=== PATIENT | female | born 2000 | race Caucasian/White ===

== ENCOUNTER 2019-01-01 21:22 | Emergency (ER) | payer OTHER ==
[~2019-01-01] VITALS: Ht 160 cm; Wt 81.6 kg
[2019-01-01 21:31] VITALS: BP 122/92
--- NOTE | 2019-01-01 21:33 | NUR ---
PT TAKEN TO BED 6
--- NOTE | 2019-01-01 21:40 | NUR ---
Dr. Kumar evaluating patient at bedside.
--- NOTE | 2019-01-01 21:45 | NUR ---
18/F BIB MOTHER, C/O DIZZINESS THAT STARTED 10 HRS AGO. S/P BL WISDOM TOOTH EXTRACTION YESTERDAY. REPORTS FEVER. TEMP 100.4 AT THIS TIME, COOLING MEASURES INITIATED. REPORTS NONPRODUCTIVE COUGH AND CONGESTION. DENIES CP, SOB, N/V. AOX4, GCS 15, RR EVEN AND UNLABORED. LUNG SOUNDS CLEAR BL. DENIES MED HX RX AMOXICILLIN, NAPROXEN, TYLENOL
[2019-01-01] MEDS ORDERED: KETOROLAC 30 MG/ML VIAL IM ONE (21:55)
[2019-01-01 23:03] VITALS: BP 111/74
--- NOTE | 2019-01-01 23:03 | NUR ---
Patient discharged with v/s stable. Written and verbal after care instructions given and explained. Patient alert, oriented and verbalized understanding of instructions. Ambulatory with steady gait. All questions addressed prior to discharge. ID band removed. Patient advised to follow up with PMD. Rx of NAPROSYN, TAMIFLU given. Patient educated on indication of medication including possible reaction and side effects. Opportunity to ask questions provided and answered.
== END 2019-01-01 23:03 | disposition home or self-care (01) ==
LOC: MED 21:22
DX: J10.1 Influenza due to other identified influenza virus with other respiratory manifestations (principal)
CPT/HCPCS: 87804; 96372; 99283; J1885; 36415

== ENCOUNTER 2020-02-29 17:22 | Emergency (ER) | payer OTHER ==
[~2020-02-29] VITALS: Ht 165.1 cm; Wt 87.5 kg
[2020-02-29 17:29] VITALS: BP 124/77
--- NOTE | 2020-02-29 17:38 | NUR ---
PT AMBULATED TO BED 11, STEADY GAIT.
--- NOTE | 2020-02-29 17:46 | NUR ---
19 Y/F PRESENTS TO ED FOR "INGROWN NAIL" TO LEFT HAND SECOND DIGIT. PT REPORTS 0/10 PAIN. EDEMA AND ERYTHEMA NOTED TO MEDIAL ASPECT OF FINGER. PT A &O X 4. LUNGS CLEAR. ABD SOFT. DENIES CHEST PAIN, DYSURIA, HEMATURIA. DENIES ANY FEVER OR CHILLS. PMH- DENIES RX- DENIES NKDA
[2020-02-29] MEDS ORDERED: ETHYL CHLORIDE 105 ML SPR TP ONE (18:00)
--- NOTE | 2020-02-29 18:03 | NUR ---
Dr. Chairez is evaluating the patient at bedside.
[2020-02-29 18:24] VITALS: BP 124/77
--- NOTE | 2020-02-29 18:24 | NUR ---
Patient discharged with v/s stable. Written and verbal after care instructions given and explained. Patient alert, oriented and verbalized understanding of instructions. Ambulatory with steady gait. All questions addressed prior to discharge. ID band removed. Patient advised to follow up with PMD. Rx of nAPROSYN 375MG AND Cephalexin 500mg was given. Patient educated on indication of medication including possible reaction and side effects. Opportunity to ask questions provided and answered.
== END 2020-02-29 18:24 | disposition home or self-care (01) ==
LOC: MED 17:22
DX: L03.012 Cellulitis of left finger (principal)
CPT/HCPCS: 90471; 90715; 99283